=== PATIENT | female | born 1960 | race Two or more races ===

== ENCOUNTER 2018-05-21 07:26 | Day surgery (SDC) | payer OTHER ==
[~2018-05-21] VITALS: Ht 157.5 cm; Wt 55.3 kg
[2018-05-21] VITALS (8 sets, daily range): BP systolic 140–150; BP diastolic 71–87
[2018-05-21] MEDS ORDERED: Midazolam 2mg/2ml Inj ONE (07:27)
[2018-05-21] MEDS ORDERED: Propofol 200mg/20ml IV ONE (07:27)
[2018-05-21] MEDS ORDERED: LR 1000ml ONE (07:27)
[2018-05-21] MEDS ORDERED: fentaNYL 100 mcg/2 mL IV ONE (07:27)
[2018-05-21] MEDS ORDERED: METOPROLOL TART25 MG ORAL (07:46)
[2018-05-21] MEDS ORDERED: CRESTOR10 M2 ORAL (07:47)
[2018-05-21] MEDS ORDERED: OMEPRAZOLE20 M2 ORAL (07:47)
[2018-05-21] MEDS ORDERED: PROLIA60 MG/1 ML SUBQ (08:01)
[2018-05-21] MEDS ORDERED: LR 1000ml 1,000 ML IVLG SCH (08:06)
--- NOTE | 2018-05-21 08:06 | Anethesia Preoperative Eval ---
Anesthesia Pre-op PMH/ROS General Date of Evaluation: May 21, 2018 Time of Evaluation: 08:03 Anesthesiologist: Vi ASA Score: ASA 2 Mallampati Score Class I : Soft palate, uvula, fauces, pillars visible Class II: Soft palate, uvula, fauces visible Class III: Soft palate, base of uvula visible Class IV: Only hard plate visible Mallampati Classification: Class II Surgeon: Lindsey Diagnosis: Abdominal pain Surgical Procedure: EGD Colonoscopy Anesthesia History: PONV Family History: no anesthesia problems Allergies: Coded Allergies: No Known Allergies (Unverified , 05/21/18) Medications: see eMAR Past Medical History Cardiovascular: Reports: HTN; Denies: CAD, [place], valve dz, arrhythmia, other Pulmonary: Denies: asthma, COPD, KAYKAY, other Gastrointestinal/Genitourinary: Reports: GERD; Denies: CRI, ESRD, other Neurologic/Psychiatric: Denies: dementia, CVA, depression/anxiety, TIA, other Endocrine: Denies: DM, hypothyroidism, steroids, other HEENT: Denies: cataract (L), cataract (R), glaucoma, [place] (L), [place] (R), other Hematology/Immune: Denies: anemia, DVT, bleeding disorder, other Musculoskeletal/Integumentary: Denies: OA, RA, DJD, DDD, edema, other PMH Narrative: as above PSxH Narrative: Bilateral mastectomy, hysterectomy Anesthesia Pre-op Phys. Exam Physician Exam Last Vital Signs Date Time Temp Pulse Resp B/P (MAP) Pulse Ox O2 Delivery O2 Flow Rate FiO2 05/21/18 07:57 Room Air 05/21/18 07:55 97.0 76 18 140/79 (99) 99 97.0 Constitutional: NAD Neurologic: CN 2-12 intact Cardiovascular: RRR, no M/R/G Respiratory: CTA Gastrointestinal: S/NT/ND Airway Exam Mallampati Score: Class II MO: full Neck: flexible ROM: full Teeth: intact Dentures: no upper, no lower Anesthesia Pre-op A/P Labs see chart Studies Pre-op Studies: EKG - NSR Risk Assessment & Plan Assessment: ASA 2 Plan: MAC Status Change Before Surgery: No Pre-Antibiotics Drug: none Bryce Lebron MD May 21, 2018 08:06
[2018-05-21] MEDS ORDERED: fentaNYL 100 mcg/2 mL IV PRN (08:15)
[2018-05-21] MEDS ORDERED: DiphenhydrAMINE 50mg/ml Inj IVP PRN (08:15)
--- NOTE | 2018-05-21 08:30 | Short Stay Surgery H&P ---
History of Present Illness History of Present Illness Chief Complaint see typed H&P HPI Clementine Vasquez is a 57 year old female who was admitted on for Gerd And Screening Patient History Allergies: Coded Allergies: No Known Allergies (Unverified , 05/21/18) Medication History Scheduled Denosumab (Prolia), 60 MG SUBQ EVERY 6 MONTHS, (Reported) Metoprolol Tartrate* (Metoprolol Tartrate*), 25 MG ORAL DAILY, (Reported) Omeprazole (Omeprazole), 20 MG ORAL DAILY, (Reported) Rosuvastatin Calcium* (Crestor*), 10 MG ORAL DAILY, (Reported) Physical Exam Vital Signs Last Vital Signs Date Time Temp Pulse Resp B/P (MAP) Pulse Ox O2 Delivery O2 Flow Rate FiO2 05/21/18 07:57 Room Air 05/21/18 07:55 97.0 76 18 140/79 (99) 99 97.0 Plan Attestation Are the patient's medical conditions optimized for surgery? Rafael Portillo MD May 21, 2018 08:30
--- NOTE | 2018-05-21 08:31 | Pre-Procedure Note/Attestation ---
Pre-Procedure Note/Attestation Complete Prior to Procedure Planned Procedure: not applicable Procedure Narrative: EGD colon Indications for Procedure Pre-Operative Diagnosis: bloating/discomfort eructation diarrhea screening Attestation I attest that I discussed the nature of the procedure; its benefits; risks and complications; and alternatives (and the risks and benefits of such alternatives ), prior to the procedure, with the patient (or the patient's legal sales representatives). I attest that, if there was a reasonable possibility of needing a blood transfusion, the patient (or the patient's legal sales representatives) was given the [facility] standardized written summary, pursuant to the [place] Blood Safety Act ([place] Health and Safety Code # 1645, as amended). I attest that I re-evaluated the patient just prior to the surgery and that there has been no change in the patient's H&P, except as documented below: Rafael Portillo MD May 21, 2018 08:30
--- NOTE | 2018-05-21 09:36 | Immediate Post-Op Evaluation ---
Immediate Post-Op Evalulation Immediate Post-Op Evalulation Procedure: EGD Colonoscopy Date of Evaluation: May 21, 2018 Time of Evaluation: 09:35 IV Fluids: 600 Blood Products: none Estimated Blood Loss: none Urinary Output: none Blood Pressure Systolic: 140 Blood Pressure Diastolic: 71 Pulse Rate: 64 Respiratory Rate: 20 O2 Sat by Pulse Oximetry: 99 Temperature (Fahrenheit): 97.9 Pain Score (1-10): 1 Nausea: No Vomiting: No Complications none Patient Status: reacts, patent, none Hydration Status: adequate Bryce Lebron MD May 21, 2018 09:36
--- NOTE | 2018-05-21 10:20 | 48 Hour Post Anesthesia Eval ---
Post Anesthesia Evaluation Procedure: EGD Colonoscopy Date of Evaluation: May 21, 2018 Time of Evaluation: 10:19 Blood Pressure Systolic: 134 0: 58 Pulse Rate: 72 Respiratory Rate: 20 Temperature (Fahrenheit): 97.6 O2 Sat by Pulse Oximetry: 98 Airway: patent Nausea: No Vomiting: No Pain Intensity: 1 Hydration Status: adequate Cardiopulmonary Status: stable Mental Status/LOC: patient returned to baseline Follow-up Care/Observations: n/a Post-Anesthesia Complications: none Follow-up care needed: ready to discharge Bryce Lebron MD May 21, 2018 10:20
--- NOTE | 2018-05-22 18:15 | Procedure Note ---
DATE OF PROCEDURE: 05/21/2018 GASTROENTEROLOGY PROCEDURE REPORT PROCEDURE: Upper gastrointestinal endoscopy with biopsy as well as screening colonoscopy. SURGEON: Rafael Portillo M.D. ANESTHESIA: Please see the separate anesthesiologist notes for details. PRE-ENDOSCOPIC DIAGNOSES: Symptoms of bloating, distention, and reflux as well as need for screening colonoscopy. POST-ENDOSCOPIC DIAGNOSES: 1. Multiple gastric polyps, status post biopsy. 2. Status post random biopsy of the duodenum. 3. Normal terminal ileum. 4. Possible 2 to 3 mm polyp in the proximal sigmoid colon or distal descending colon at 30 cm, still in situ. DESCRIPTION OF PROCEDURE: The procedure, its risks, indications, alternatives, and possible complications including, but not limited to bleeding, infection, perforation, , and anesthesia complications were explained to the patient and an informed consent was obtained. The patient was then sedated in the left lateral decubitus position. A diagnostic upper endoscope was introduced through the oropharynx and advanced to the duodenum without difficulty. The endoscope was then gradually withdrawn. The mucosa examined carefully. Examination of the upper gastrointestinal mucosa revealed normal esophagus with no evidence of gastroesophageal reflux. In the stomach, there were multiple smooth diminutive polyps of varying sizes seen typical for fundic gland polyposis. Four of these are biopsied and all are sent in same bottles for review. The duodenum appeared normal and it was biopsied and sent to pathology. The endoscope was then removed and the colonoscope was introduced into the rectum, after rectal exam was done, and advanced to the terminal ileum for about 10 cm. The terminal ileal mucosa was normal for 10 cm. The colonic mucosa was also normal. At approximately 30 cm, which was distal descending versus a possible sigmoid colon, there was a 2 to 3 mm polyp, which was seen and photographed. The polyp was subsequently lost to visual inspection and despite 6 separate re-sweeping of the entire area visually, this lesion could not be found again. The retroflexed view of the rectum revealed no abnormalities. The colonoscope was removed and the patient was left to recovery in good and stable condition. It was also noted that the colonic contour was somewhat tortuous. The procedure was therefore somewhat more difficult. This patient's examination was notable for likely fundic gland polyps, which will be evaluated on biopsies. There was possible 2 to 3 mm polyp seen in the left colon, but this could not be seen on multiple repeat examinations. To make sure, the patient will be advised to repeat the colonoscopy in one in two years to re-evaluate this area. Biopsies from the small bowel will also be evaluated for evidence of small bowel disease. RECOMMENDATIONS: 1. Resume oral diet. 2. Follow up biopsy results. 3. Outpatient followup. 4. Repeat colonoscopy in one to two years. Thank you for asking me to participate in the care of this patient. Rafael Portillo M.D. DR: JONAH JOB#: [id number] CC: Liborio Bains M.D. MTDKana
--- NOTE | 2018-05-22 20:30 | Endoscopy Procedure Note ---
Endoscopy Procedure Note General Indication for Procedure: bloating GERD Screening Procedures Performed: EGD, colonoscopy Operative Findings/Diagnosis: gastric polyps, possible diminutive colon polyp in situ Specimen: yes Pt Tolerated Procedure Well: Yes Estimated Blood Loss: none Anesthesia Anesthesiologist: See records Anesthesia: MAC Medications Medication Given: see anesthesia record Inserted Devices Implant(s) used?: No GI Core Measures 50 yrs or older w/o bx or poly: Not Applicable 10yrs. F/U not recommended: Not Applicable If not recommended, why?: Rafael Portillo MD May 22, 2018 20:30
--- NOTE | 2018-05-22 20:33 | Brief Operative Note ---
Immediate Post Operative Note Operative Note Chief Complaint: bloating abd discomfort screenng Pre-op Diagnosis: bloating/discomfort eructation diarrhea screening Procedure: EGD/bx, screening colon Post-op Diagnosis: gastric polyps, possible dim polyp in sigmoid in situ Surgeon: jenaro Anesthesiologist: jenaro Anesthesia: moderate sedation Specimen: yes Complications: none Condition: stable Fluids: recorded Estimated Blood Loss: none Drains: none Implant(s) used?: No Rafael Portillo MD May 22, 2018 20:33
== END 2018-05-21 10:30 | disposition home or self-care (01) ==
LOC: GAS 07:26
DX: Z12.11 Encounter for screening for malignant neoplasm of colon (principal); K63.5 Polyp of colon; K29.50 Unspecified chronic gastritis without bleeding; K31.7 Polyp of stomach and duodenum; I10 Essential (primary) hypertension; E78.00 Pure hypercholesterolemia, unspecified; M81.0 Age-related osteoporosis without current pathological fracture; K21.9 Gastro-esophageal reflux disease without esophagitis; Z90.710 Acquired absence of both cervix and uterus; Z90.13 Acquired absence of bilateral breasts and nipples
CPT/HCPCS: 43239; 45378; J2250; J2704; J3010; J7120; 94003; 94150

== ENCOUNTER 2020-06-11 06:39 | Day surgery (SDC) | payer OTHER ==
[~2020-06-11] VITALS: Ht 157.5 cm; Wt 56.7 kg
[2020-06-11] VITALS (10 sets, daily range): BP systolic 122–144; BP diastolic 65–77
[~2020-06-11 06:39] MED LIST: CRESTOR10 M2 ORAL; METOPROLOL TART25 MG ORAL; OMEPRAZOLE20 M2 ORAL; PROLIA60 MG/1 ML SUBQ
[2020-06-11] MEDS ORDERED: LR 1000ml 1,000 ML IVLG SCH (07:00)
[2020-06-11] MEDS ORDERED: AVAPRO150 MG ORAL (07:16)
[2020-06-11] MEDS ORDERED: Lidocaine 1% MPF 10mg/ml 5ml ONE (08:00)
[2020-06-11] MEDS ORDERED: LR 1000ml ONE (08:00)
--- NOTE | 2020-06-11 08:15 | Pre-Procedure Note/Attestation ---
Pre-Procedure Note/Attestation Complete Prior to Procedure Procedure Narrative: colon Indications for Procedure Pre-Operative Diagnosis: h/o polyp Attestation I attest that I discussed the nature of the procedure; its benefits; risks and complications; and alternatives (and the risks and benefits of such alternatives ), prior to the procedure, with the patient (or the patient's legal outbound call center representative). I attest that, if there was a reasonable possibility of needing a blood transfusion, the patient (or the patient's legal outbound call center representative) was given the [facility] standardized written summary, pursuant to the [place] Blood Safety Act ([place] Health and Safety Code # 1645, as amended). I attest that I re-evaluated the patient just prior to the surgery and that there has been no change in the patient's H&P, except as documented below: Rafael Portillo MD Jun 11, 2020 08:15
--- NOTE | 2020-06-11 08:15 | Short Stay Surgery H&P ---
History of Present Illness History of Present Illness Chief Complaint see H&P HPI Clementine Vasquez is a 59 year old female who was admitted on for History Of Colon Polyps Patient History Allergies: Coded Allergies: No Known Allergies (Unverified , 06/11/20) Medication History Scheduled Denosumab (Prolia), 60 MG SUBQ EVERY 6 MONTHS, (Reported) Irbesartan* (Avapro*), 150 MG ORAL BID, (Reported) Metoprolol Tartrate* (Metoprolol Tartrate*), 25 MG ORAL DAILY, (Reported) Omeprazole (Omeprazole), 20 MG ORAL DAILY, (Reported) Rosuvastatin Calcium* (Crestor*), 10 MG ORAL DAILY, (Reported) Physical Exam Vital Signs Last Vital Signs Date Time Temp Pulse Resp B/P (MAP) Pulse Ox O2 Delivery O2 Flow Rate FiO2 06/11/20 07:08 Room Air 06/11/20 07:06 97.0 69 18 137/69 98 Plan Attestation Are the patient's medical conditions optimized for surgery? Rafael Portillo MD Jun 11, 2020 08:15
--- NOTE | 2020-06-11 09:00 | Immediate Post-Op Evaluation ---
Immediate Post-Op Evalulation Immediate Post-Op Evalulation Procedure: Colonoscopy Date of Evaluation: Jun 11, 2020 Time of Evaluation: 09:00 IV Fluids: 600 Blood Pressure Systolic: 126 Blood Pressure Diastolic: 67 Pulse Rate: 67 Respiratory Rate: 14 O2 Sat by Pulse Oximetry: 100 Temperature (Fahrenheit): 98.2 Nausea: No Vomiting: No Patient Status: awake, reacts, patent Hydration Status: adequate Drug: none Montse Shah CRNA Jun 11, 2020 09:00
--- NOTE | 2020-06-11 09:02 | Anethesia Preoperative Eval ---
Anesthesia Pre-op PMH/ROS General Date of Evaluation: Jun 11, 2020 Time of Evaluation: 08:10 Anesthesiologist: gus ASA Score: ASA 2 Mallampati Score Class I : Soft palate, uvula, fauces, pillars visible Class II: Soft palate, uvula, fauces visible Class III: Soft palate, base of uvula visible Class IV: Only hard plate visible Mallampati Classification: Class II Surgeon: kelly Diagnosis: hx of polyp Surgical Procedure: colonoscopy Anesthesia History: none Family History: no anesthesia problems Allergies: Coded Allergies: No Known Allergies (Unverified , 06/11/20) Medications: see eMAR Patient NPO?: Yes NPO Date: Jun 11, 2020 NPO Time: 00:01 Past Medical History Cardiovascular: Reports: HTN; Denies: CAD, [place], valve dz, arrhythmia, other Pulmonary: Denies: asthma, COPD, KAYKAY, other Gastrointestinal/Genitourinary: Reports: GERD; Denies: CRI, ESRD, other Neurologic/Psychiatric: Denies: dementia, CVA, depression/anxiety, TIA, other HEENT: Denies: cataract (L), cataract (R), glaucoma, [place] (L), SITKA (R), other Hematology/Immune: Denies: anemia, DVT, bleeding disorder, other Musculoskeletal/Integumentary: Denies: OA, RA, DJD, DDD, edema, other PSxH Narrative: EGD Anesthesia Pre-op Phys. Exam Physician Exam Last Vital Signs Date Time Temp Pulse Resp B/P (MAP) Pulse Ox O2 Delivery O2 Flow Rate FiO2 06/11/20 07:08 Room Air 06/11/20 07:06 97.0 69 18 137/69 98 Constitutional: NAD Neurologic: CN 2-12 intact Cardiovascular: RRR Respiratory: CTA Gastrointestinal: S/NT/ND Airway Exam Mallampati Score: Class II MO: full ROM: full Dentures: no upper, no lower Anesthesia Pre-op A/P Studies Pre-op Studies: EKG - sr Risk Assessment & Plan Assessment: covid neg Plan: mac Status Change Before Surgery: No Pre-Antibiotics Drug: none Montse Shah CRNA Jun 11, 2020 09:02
--- NOTE | 2020-06-11 09:04 | Endoscopy Procedure Note ---
Endoscopy Procedure Note General Indication for Procedure: h/o polyp Procedures Performed: colonoscopy Operative Findings/Diagnosis: normal x 2 Specimen: none Pt Tolerated Procedure Well: Yes Estimated Blood Loss: none Anesthesia Anesthesiologist: JUSTYN Anesthesia: MAC Medications Medication Given: see anesthesia record Inserted Devices Implant(s) used?: No Quality Quality of Bowel Preparation: Good GI Core Measures 50 yrs or older w/o bx or poly: Not Applicable 10yrs. F/U recommended: Not Applicable Rafael Portillo MD Jun 11, 2020 09:04
--- NOTE | 2020-06-11 09:07 | Brief Operative Note ---
Immediate Post Operative Note Operative Note Pre-op Diagnosis: h/o polyp Procedure: colonoscopy Post-op Diagnosis: normal Surgeon: jenaro Anesthesiologist: JUSTYN Anesthesia: MAC Specimen: none Complications: none Condition: stable Fluids: per anesthesia Estimated Blood Loss: none Implant(s) used?: No Rafael Portillo MD Jun 11, 2020 09:07
--- NOTE | 2020-06-11 12:01 | 48 Hour Post Anesthesia Eval ---
Post Anesthesia Evaluation Procedure: Colonoscopy Date of Evaluation: Jun 11, 2020 Time of Evaluation: 12:01 Blood Pressure Systolic: 139 0: 74 Pulse Rate: 64 Respiratory Rate: 14 O2 Sat by Pulse Oximetry: 98 Airway: patent Nausea: No Vomiting: No Hydration Status: adequate Cardiopulmonary Status: stable Mental Status/LOC: patient returned to baseline Post-Anesthesia Complications: none Follow-up care needed: N/A Montse Shah CRNA Jun 11, 2020 12:01
--- NOTE | 2020-06-11 15:30 | Procedure Note ---
DATE OF PROCEDURE: 06/11/2020 PROCEDURE: Colonoscopy. SURGEON: Rafael Portillo MD. ANESTHESIA: Please see the separate anesthesiologist notes for details. PRE-ENDOSCOPIC DIAGNOSIS: History of colonic polyps. POST-ENDOSCOPIC DIAGNOSIS: Normal colonoscopy. DESCRIPTION OF PROCEDURE: The procedure, risks, indications, alternatives, and possible complications including, but not limited to bleeding, infection, perforation, , and anesthesia complications were explained to the patient and informed consent was obtained. The patient was then sedated in the left lateral decubitus position. A rectal exam was done, which was normal. The colonoscope was then introduced into the rectum and advanced to the cecum without difficulty. The cecum was identified by the appearance of the ileocecal valve. The colonoscope was then gradually withdrawn and mucosa examined carefully. Examination of colonic mucosa did not reveal any colonic polyps. Retroflexed view of the rectum was unremarkable. The colonoscope was once again advanced to the hepatic flexure to ensure that no previous polyps were missed. The mucosal wall was once again examined very carefully and no polyps were identified. The patient was sent to recovery in good condition. COMPLICATIONS: None. RECOMMENDATIONS: 1. Followup with primary physician. 2. Repeat colonoscopy in 5 years. Rafael Portillo M.D. DR: Jessica JOB#: [id number] CC: MD RAFAEL Serrano M.D. ; FAX#: [phone]
== END 2020-06-11 09:55 | disposition home or self-care (01) ==
LOC: GAS 06:39
DX: K63.5 Polyp of colon (principal); Z86.010 Personal history of colon polyps; Z79.899 Other long term (current) drug therapy; I10 Essential (primary) hypertension; K21.9 Gastro-esophageal reflux disease without esophagitis
CPT/HCPCS: 45378; 94003; J2704; J7120; U0002; 94150